=== PATIENT | male | born 1960 | race Caucasian/White ===

== ENCOUNTER → 2018-10-24 08:23 | Outpatient (CLI) | payer OTHER, SELFPAY ==
[2018-10-24 08:19] VITALS: BMI 43.0
--- NOTE | 2018-10-24 08:26 | RAD_ITS ---
STUDY: X-RAY - RIGHT KNEE REASON FOR EXAM: Pain, fall 4 months ago. TECHNIQUE: 4 view(s) of the knee. COMPARISON: None. FINDINGS: Normal visualized distal femur. Normal visualized proximal tibia and fibula. Normal proximal tibiofibular articulation. There is mild joint space narrowing of the medial femorotibial compartment. Normal lateral femorotibial compartment. Normal patellofemoral articulation. The soft tissue structures are unremarkable. RAD/Knee 4 or More Views IMPRESSION: Mild arthrosis of the medial femorotibial compartment. Electronically Signed: Emil Jenkins MD at 9:25 EDT Tel , Service support ,
== END ==
PROVIDERS: Family Provider Family Medicine; PCP Family Medicine; Referring Provider Orthopaedic Surgery; Visit Provider Orthopaedic Surgery
DX: S86.911A Strain of unspecified muscle(s) and tendon(s) at lower leg level, right leg, initial encounter (principal); X58.XXXA Exposure to other specified factors, initial encounter; Y93.9 Activity, unspecified; Y92.9 Unspecified place or not applicable; Y99.9 Unspecified external cause status
CPT/HCPCS: 73564

== ENCOUNTER → 2018-12-12 | Outpatient (CLI) | payer OTHER, SELFPAY ==
[2018-10-18 14:20] VITALS: BMI 43.0
[2018-11-06 15:57] VITALS: BMI 43.0
--- NOTE | 2018-12-12 07:12 | MRI_ITS ---
STUDY: MRI RIGHT KNEE REASON FOR EXAM: Male, 58 years old. Injury, medial knee pain TECHNIQUE: Standardized fat and water weighted pulse sequences were obtained in all 3 orthogonal planes. COMPARISON: None. FINDINGS: There is a radial tear of the medial meniscus posterior horn and approximately 4 mm extrusion. There is scattered, focal regions of greater than 50% thickness articular cartilage loss of the medial femorotibial compartment. Normal medial femoral condyle and tibial plateau. Normal medial collateral ligamentous complex (MCL). Normal distal semimembranosus, gracilis and semitendinosus tendons. Normal lateral meniscus. Normal hyaline cartilage of the lateral femorotibial compartment. Normal lateral femoral condyle and tibial plateau. Normal proximal tibiofibular articulation. Normal lateral collateral (fibular) ligament. Normal popliteus tendon. Normal biceps femoris tendon. Normal anterior cruciate ligament (ACL). Normal posterior cruciate ligament (PCL). Normal congruent patellofemoral articulation. There is signal heterogeneity within the articular cartilage of the patellofemoral compartment and focal full thickness articular cartilage loss of the patellofemoral compartment medial facet with mild underlying patellar marrow signal hyperintensity. Normal medial and lateral patellar retinaculum. Normal quadriceps tendon. Normal patellar tendon. Normal Hoffa's fat pad. There is no joint effusion. There is a small Rodriguez's cyst. There is moderate subcutaneous edema along the anterior knee soft tissues. The otherwise visualized osseous structures are unremarkable. MRI/Lower Ext Joint Only (Routine) IMPRESSION: Radial tear of the medial meniscus posterior horn with extrusion. 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 Small Rodriguez's cyst and mild subcutaneous edema along the anterior knee soft tissues. Electronically Signed: Rina Callahan, at 9:40 EDT Tel , Service support ,
== END | disposition home or self-care (01) ==
LOC: MRI 07:11
PROVIDERS: Referring Provider Orthopaedic Surgery; Visit Provider Orthopaedic Surgery
DX: S86.911A Strain of unspecified muscle(s) and tendon(s) at lower leg level, right leg, initial encounter (principal)
CPT/HCPCS: 73721

== ENCOUNTER 2018-12-13 07:00 | Outpatient (RCR) | payer OTHER, SELFPAY ==
[2018-11-06 15:57] VITALS: BMI 43.0
--- NOTE | 2018-11-08 13:53 | HP.PTEVAL ---
Patient's Visit Information KRANTHI SAMANO is a 58 year old M referred to Physical Therapy by Milad Wolff DO with a diagnosis of Strain of R knee. 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 One day he slipped on Jul 17, 2018 and hyperextended his knee. He was not worried about but it is not helping. Pt was trying to work through it and hoping it would heal and it isn't. He had some clifton therapy and the muscle released but still sore on the medial knee. He does a lot of walking and climning in and out of the truck and doing that 3-4 hours in he starts to hurt. Going up the stairs is not difficult until he stops, doing down hurts, standing still hurts. Walking is ok until he does it for awhile. His L hip is now starting to stiffen up on him. It feels that the psoas muscles are sore and it hurts when he stretches them and his G-max pain that shoots down his leg. His knee does not hurt when he is not on it. He has tried all kinds of biofreeze etc and it does not help. He has no N&T. It has not been keeping him up at night in the last couple of weeks. He has no locking or catching and it has popped a couple of times walking through his yard. He is now doing desk work for 4 weeks now and it seems to be a little better at night and now the hip is worse than the knee at night. He got a shot 2 days ago in the knee (cortizone shot) and he has been trying to baby it. wanted to do an MRI but has to do PT first. - Pain R knee pain Pain Intensity (Out of 10): 0 Pain Intensity Range: 6 - Objective Gait: Walks with decrease stance time on the R LE. R knee AROM: 110 knee flex, -6 knee ext. L knee AROM: 115 knee flex, -3 knee ext. R LE MMT: R hip flex 4/5, R hip abd 4/5, R knee ext 4/5 and R knee flex 4+/5. L LE MMT: L hip 4+/5, L hip abd 4+/5, L knee flex and ext 4+/5. Patellar DTR's: 0/3 B. Palpation: tender along the R medial joint line - Goals Goal 1:: I HEP Goal Time Frame: 4-6 Weeks Goal 2:: Increase R knee AROM to equal that of the L (-3 degrees to 115 degrees knee flex) Goal Time Frame: 4-6 Weeks Goal 3:: Walk with a normal gait pattern Goal Time Frame: 4-6 Weeks Goal 4:: Be able to complete a normal work day without pain Goal Time Frame: 4-6 Weeks - Rehabilitation Potential Rehabilitation Potential: Good - Anticipated Interventions Patient/Client Instruction: Educate patient on: Condition, Plan of Care For the Purpose of:: To decrease pain, To decrease swelling/inflammation, To increase ROM, To improve nutrient delivery to tissue, To improve muscle performance and motor function, To improve ability to perform ADL's, To increase tolerance to activity/condition/position, To improve performance and independence with ADL's, To improve gait and locomotor functions, To improve health of tissue, To decrease soft tissue restriction, To increase flexibility/ROM Therapeutic Exercise to Include: Strength training, Flexibilty training, Gait and locomotor training, Passive ROM, Active ROM For the Purpose of:: To decrease pain, To increase ROM, To improve muscle performance and motor function, To improve ability to perform ADL's, To improve gait and locomotor functions, To improve health of tissue, To increase flexibility/ROM Functional Training to Include: Gait training For the Purpose of:: To improve gait and locomotor functions IF ES: Yes Cryotherapy (ice pack, ice massage): Yes For the Purpose of:: To decrease pain, To decrease swelling/inflammation, To increase ROM, To improve nutrient delivery to tissue Thank you for the opportunity to evaluate your patient. For Medicare and Medicare HMO plans, please review the plan of care and approve it. It will need to be FAXED BACK to us at [phone] for Medicare purposes. For Medicare only, by signing this I certify the plan of care. Please let me know if there are questions or concerns regarding this plan of care. Physician Signature: Date:
--- NOTE | 2019-02-18 16:53 | HP.PTDCNRP_ITS ---
HP - Discharge Summary (1) - Patient Information KRANTHI SAMANO was seen in my office for initial evaluation on 11/08/18. The following Plan of Care was established for this patient: Initial Frequency: 2x /Week Initial Duration: 6 Weeks - Anticipated Interventions Patient/Client Instruction: Educate patient on: Condition, Plan of Care For the Purpose of:: To decrease pain, To decrease swelling/inflammation, To i ncrease ROM, To improve nutrient delivery to tissue, To improve muscle performance and motor function, To improve ability to perform ADL's, To increase tolerance to activity/condition/position, To improve performance and independence with ADL's, To improve gait and locomotor functions, To improve health of tissue, To decrease soft tissue restriction, To increase flexibility/ROM Therapeutic Exercise to Include: Strength training, Flexibilty training, Gait and locomotor training, Passive ROM, Active ROM For the Purpose of:: To decrease pain, To increase ROM, To improve muscle performance and motor function, To improve ability to perform ADL's, To improve gait and locomotor functions, To improve health of tissue, To increase flexibility/ROM Functional Training to Include: Gait training For the Purpose of:: To improve gait and locomotor functions IF ES: Yes Cryotherapy (ice pack, ice massage): Yes For the Purpose of:: To decrease pain, To decrease swelling/inflammation, To increase ROM, To improve nutrient delivery to tissue This patient was last seen in our office 12/13/18. Pertinent comments regarding their Physical therapy will appear below: SAMANTHA PT... surgery At this point I will be discontinuing this patient from physical therapy. I would be happy to see this patient again in the future if found appropriate by the physician. Thank you! Mandi Mahoney, MPT
== END 2018-12-13 19:00 | disposition home or self-care (01) ==
LOC: PT 07:00
PROVIDERS: Family Provider Family Medicine; PCP Family Medicine; Referring Provider Orthopaedic Surgery; Visit Provider Orthopaedic Surgery
DX: S83.91XD Sprain of unspecified site of right knee, subsequent encounter (principal)
CPT/HCPCS: 97110; 97161

== ENCOUNTER 2018-12-31 08:22 | Day surgery (SDC) | payer OTHER, SELFPAY ==
[2018-11-06 15:57] VITALS: BMI 43.0
[2018-12-31 08:42] VITALS: BP 125/86; PULSE 63; RESP 16; TEMP 36.9; O2SAT 95; BMI 41.5
--- NOTE | 2018-12-31 10:17 | PCM.HP.BLA ---
History and Physical Date of Admission: 12/31/18 Intake Intake Visit Reasons: RIGHT KNEE Allergies No Known Allergies Allergy (Unverified 10/18/18 14:19) PFSH Medical History Fatigue (Acute) Knee pain (Acute) Shoulder pain (Acute) Chronic neck and back pain (Chronic) Family History Other CVA (cerebral vascular accident) Social History Smoking Status: Never smoker alcohol intake: current HPI RIGHT KNEE: Details: Parts of this documentation were recorded by a scribe, this documentation accurately reflects the service provided and the decisions made by me, Milad Wolff, 12/04/18 0809. KRANTHI SAMANO is a 58 year old M here today for F/U after right knee injection given on 11/06/18. States the injection was effective for 2 weeks. Patient has been completing PT and states this has been effective for helping with his knee and has been effective for his hips. MRI was denies in October d/t no injection or PT was completed prior. Patient has been on light duty and patient states he has been doing well with this work. Patient has also invested in a balance ball to preform step ups. Patient does states he feels like something is pulling in the medial side of his knee. This was not present prior to his reported work injury and has continued to give him discomfort despite our treatment thus far ROS Const Reports system reviewed and no additional complaints, except as docu Eyes Reports system reviewed and no additional complaints, except as docu ENT Reports system reviewed and no additional complaints, except as docu Card Reports system reviewed and no additional complaints, except as docu Resp Reports system reviewed and no additional complaints, except as docu GI Reports system reviewed and no additional complaints, except as docu Reports system reviewed and no additional complaints, except as docu Musc Reports system reviewed and no additional complaints, except as docu, Reports as per HPI Skin/Breast Reports system reviewed and no additional complaints, except as docu Neuro Yes system reviewed and no additional complaints, except as docu Psych Reports system reviewed and no additional complaints, except as docu Endo Reports system reviewed and no additional complaints, except as docu Nelson/Lymph Reports system reviewed and no additional complaints, except as docu Aller/Immun Reports system reviewed and no additional complaints, except as docu Ortho Exam Right Knee Skin/Wound: No erythema, No ecchymosis, No swelling Examination: Yes Med jt line tenderness, No Lat jt line tenderness, Yes Ac's Test (click with medial) KNEE: Right Knee Skin/Wound: No erythema, No ecchymosis 1+: Effusion Knee ROM: Yes ROM-Extension -20 to 0, No ROM-Flexion 0-140 (110) Examination: Yes Med jt line tenderness, No Lat jt line tenderness, Yes Ac's Test (med pain no click), No Acevedo's, No TTP Pes Anserine Stability: NML: Anterior Drawer, NML: Valgus 0, NML: Valgus 30, NML: Varus 30 Patella Grind: No Assessment & Plan Problems 1. Strain of right knee, initial encounter S86.101Z Plan Since patient has not had success with the steroid injection of the knee and formal PT with HEP we will try for another MRI to see if this will be approved because he is continuing to have medial sided mechanical symptoms. Will also request additional code request for mechanical pain of right knee. Clinical exam is showing some signs of a meniscus tear. Follow up after MRI is approved and obtained or sooner if pain, swelling, numbness or associated symptoms, or concerns develop. All questions answered. Patient in agreement of plan. Coding Level of Care Code Off vis,est,level 3 Diagnoses Strain of right knee, initial encounter S86.778U ??Encounter type: initial encounter 12/04/18 1606 <Electronically signed by Milad Wolff DO> Date Milad Wolff DO I have re-examined the patient. There are no clinical changes since date of exam
[2018-12-31] MEDS: Cefazolin 2 GM in 0.9% Normal Saline 100 ML IV (10:28)
[2018-12-31] MEDS: Epinephrine (1 mg/ml) 1 MG/ML VIAL (10:49)
[2018-12-31] MEDS: Bupiv/Epi 0.5% Mpf 30 ML Vial (11:00)
[2018-12-31] MEDS: MethylPREDNISolone Acetate 80 MG/ML Vial (11:08)
[2018-12-31] MEDS: Morphine 4 MG/ML Syringe (11:08)
[2018-12-31] MEDS: Bupivacaine 0.5% PF 10 ML VIAL (11:08)
[2018-12-31 11:20] VITALS: BP 125/86; BP 127/82; PULSE 70; RESP 16; TEMP 36.2; O2SAT 92
--- NOTE | 2018-12-31 11:28 | DCINST_ITS ---
Call your doctor if you observe: Fever of 101 or Higher, Shortness of breath, Chest pain Additional Instructions: Ice and elevate next 72 hours .keep dressing on clean and dry for 48 hours then may remove begin showering daily but do not submerge in tub or pool. After shower may apply Band-Aids . Encourage knee range of motion weightbearing as tolerated, use crutches until confident in knee then may discontinue. No strenuous activity. When not ambulating keep iced and elevated next 72 hours. Allergies/Adverse Reactions: Allergies No Known Allergies Allergy (Unverified 12/31/18 08:42) Medications to take at Discharge Naproxen Sodium [Aleve] 220 mg PO BID 12/27/18 Hydrocodone Bitart/Apap 5-325 [[place] 5MG-325MG] 1 - 2 tablet PO Q4H PRN PRN 5 Days #30 tablet 12/31/18 The following prescriptions were given: Hydrocodone Bitart/Apap 5-325 [[place] 5MG-325MG] 1 - 2 tablet PO Q4H PRN PRN 5 Days #30 tablet PRN Reason: Pain Primary Care Physician: Care Physician,No Primary [Primary Care Provider] - Test Results: Test results from this visit will be discussed in further detail at your follow- up appointment, if applicable. Please Follow Up With: Milad Wolff DO - 2 weeks
--- NOTE | 2018-12-31 11:28 | PCM.OPRPT ---
Report of Operation Date of Procedure: 12/31/18 Description of Surgical Findings:: Preop diagnosis: Right knee DJD medial meniscus tear Postoperative diagnosis: Grade 4 cartilage wear medial femoral condyle and trochlea grade 3 patella grade 2-3 lateral compartment small radial tearing body lateral meniscus, loose body Procedure: Right knee arthroscopic partial medial and lateral meniscectomy chondroplasty medial and patellofemoral compartment, removal of loose body Anesthesia: General Estimated blood loss: [5] mL Tourniquet time: 24 minutes minutes 300 mmHg Complications: none Indication for procedure: This is a 58-year-old male patient who had injured his knee at work. Who had failed conservative treatment then went underwent an MRI which showed medial meniscus tear and cartilage wear. The patient did wish to proceed with an elective arthroscopic surgery to attempt to alleviate the symptoms. Risk benefits and alternatives of the procedure were reviewed including risk of bleeding infection nerve artery tissue damage need for further surgery continued pain and expected postoperative course. Procedure: The patient was met in the preoperative holding area. The operative extremity was identified by both patient and physician and family and marked. Patient was brought back to the operating room on a wheeled cart and transferred to the operating table in the supine position. Anesthesia was started. A well-padded tourniquet was placed on the operative extremity. A lower extremity leg ledbetter was secured to the operative extremity. The contralateral extremity was well-padded and the end of the bed was flexed to 90 degrees. The patient was prepped and draped in the usual sterile fashion. A timeout was called to ensure the proper patient, procedure, and extremity were being contemplated. 0.5% Marcaine with epinephrine was injected into the planned incisional areas under the skin only. An Esmarch was used to exsanguinate the extremity and the tourniquet was inflated. An 11 blade scalpel was used to make a stab incision in the anterior lateral portal. The arthroscope was inserted into the intercondylar notch and inflow and outflow tubes were attached. Arthroscopic visualization began. The medial compartment was entered. An 18-gauge spinal needle was used to establish the placement for anterior medial portal. An 11 blade scalpel was used to make a stab incision. Blunt probe was inserted followed by a meniscal probe. Complex tearing posterior horn and body medial meniscus with use of arthroscopic biting instruments shaver and ArthroCare partial medial meniscectomy was performed was also noted to be near grade 4 cartilage wear extensively along the medial femoral condyle and patellofemoral joint there was a loose cartilage in the peripheries and a chondroplasty was performed on the peripheral edge or new no loose bodies there was a loose body found in the gutter which was removed the ACL was [found to be intact]. The lateral compartment was entered small radial tear body lateral meniscus which was debrided with a shaver [With the use of arthroscopic biting instruments and yair and ArthroCare wand a partial lateral meniscectomy was performed.] The arthroscope was switched to the medial portal to complete the procedure. The medial and lateral gutters were inspected and one small loose body which was removed. The patellofemoral joint was inspected high-grade cartilage wear. [There was good patellar tracking.] The knee was thoroughly irrigated and drained. An intra-articular injection with 5 cc 0.5% Marcaine plain 4 mg of morphine [and 40 mg of Depo-Medrol] was injected intra-articularly. The arthroscope was removed the portals were closed with 3-0 nylon arthroscopic stitches. Followed by Xeroform 4 x 4's ABDs web roll and an Juma wrap. The tourniquet was let down and the drapes were removed. All counts were correct. The patient was brought back to the PACU in stable condition.
[2018-12-31 11:30] VITALS: BP 125/86; BP 127/91; PULSE 65; RESP 16; O2SAT 92
[2018-12-31 11:40] VITALS: BP 125/86; BP 129/81; PULSE 64; RESP 16; TEMP 36.2; O2SAT 94
[2018-12-31] MEDS: HYDROcodone Bitartrate/Apap 5/325 Tablet PO (12:10)
[2018-12-31 12:45] VITALS: BP 125/86; BP 136/82; PULSE 55; RESP 16; TEMP 36.3; O2SAT 93
== END 2018-12-31 12:54 | disposition home or self-care (01) ==
LOC: SDC 08:22 → AC 08:23
PROVIDERS: Referring Provider Orthopaedic Surgery; Visit Provider Orthopaedic Surgery
PROC: (CPT 29870; principal; 2018-12-31 09:50)
DX: S83.241A Other tear of medial meniscus, current injury, right knee, initial encounter (principal); M17.11 Unilateral primary osteoarthritis, right knee; X58.XXXA Exposure to other specified factors, initial encounter; Y93.89 Activity, other specified; Y92.89 Other specified places as the place of occurrence of the external cause; Y99.0 Civilian activity done for income or pay
CPT/HCPCS: 01400; 29880; J7120; J2405

== ENCOUNTER → 2019-01-03 | Outpatient (CLI) | payer OTHER, SELFPAY ==
[2018-12-31 08:42] VITALS: BMI 41.5
--- NOTE | 2019-01-03 11:30 | VDLE_ITS ---
Reason For Study: Pain RIGHT GSV is normal. CFV is compressible, spontaneous, phasic, competent and demonstrates normal augmentation. FV is compressible, spontaneous, phasic, competent and demonstrates normal augmentation. POP V is compressible, spontaneous, phasic, competent and demonstrates normal augmentation. T/P Trunk is compressible. PTV is compressible. RT PerV is compressible. Procedure Exam performed in department. A preliminary report was called and/or faxed to [facility]. Interpretation Summary There is no evidence of right lower extremity deep vein thrombosis. Right greater saphenous vein appears patent and compressible segmentally. Ordering Physician: Milad Wolff Performed By: Jazlyn Dyson RVT
== END | disposition home or self-care (01) ==
LOC: CVS 11:28
PROVIDERS: Referring Provider Orthopaedic Surgery; Visit Provider Orthopaedic Surgery
DX: M79.661 Pain in right lower leg (principal)
CPT/HCPCS: 93971

== ENCOUNTER 2019-04-02 09:00 | Outpatient (RCR) | payer OTHER, SELFPAY ==
[2019-02-17 09:51] VITALS: BMI 41.5
--- NOTE | 2019-03-03 10:26 | HP.PTEVAL_ITS ---
Patient's Visit Information KRANTHI SAMANO is a 58 year old M referred to Physical Therapy by Milad Wolff DO with a diagnosis of Right Knee Strain. Date of Evaluation: 03/03/19 Physical Therapist: Radha Rosario DPT - Visit Plan Frequency: 3x /Week Duration: 4 Weeks Plan: Focus on LE and core strength/stabilization. HEP given: SLS with focus on level pelvis to avoid hip drop, SLR with isometric abdominals, Clams - Subjective Findings: Hurt Right knee back in July 17- slipped when getting out of the truck at work. Early October boss saw him limping- [facility] took over- 5 weeks then was given and injection and scheduled PT. Did PT for 6 weeks- had an MRI by Dr. Woodward saw a meniscal tear and OA. Had daisy December 31- was doing great for a week- no pain- got out of a vehicle twisted and it hurt really bad and has not been right since. Was working from home and light duty- had a cortisone injection and brace and went back to work 02/24/19. Was fired 2 days after he was back from [place]. The pain is along the medial side of the knee. 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 Knows the knee is not right. Worst: 6/10 Best: 0/10 Eases: stop whatever he is doing, bending and work it through, get off it. No radiating pain- describes the pain as sharp/shooting. No N/T in the LE- but does have some in the toes which is new since surgery. 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 No x-rays or MRI since surgery. Does not have an apt to go back and see Dr. Woodward. Sleep: not disturbed. Wears the knee brace for extensive walking or activity. But does not wear in the evenings and when he is sleeping. PMHx/Med: no changes since surgery. - Objective Posture: FH, RS- can correct but does not maintain. Gait: antalgic- decreased stance time on the right LE with poor heel/toe pattern. SLS: 10 sec but does have hip drop immediatly. HR/TR: able no deviation noted. Stairs:asc/desc 8' recip with 2 HR- uses UE A for propulsion upstairs- desc is uncontrolled. Palpation: tender along medial joint line. ROM: 0-120 degrees. Strength: ankle: 5/5 Knee: 4+/5 flexion 5/5 extension, Hip: 4/5, Core: fair minus. Flex: HS: moderate, Gastroc: moderate - Goals Goal 1:: Patient will be I with HEP and progression Goal Time Frame: 4-6 Weeks Goal 2:: Patient will ambulate >300 feet with a normalized gait pattern Goal Time Frame: 4-6 Weeks Goal 3:: Patient will maintain proper posture t/o tx session to demo increased core s/s Goal Time Frame: 4-6 Weeks Goal 4:: Patient will report 0/10 pain with all ADL's. Goal Time Frame: 4-6 Weeks - Rehabilitation Potential Physical Therapy Diagnosis: Patient presents with hypomobility- he has decreased strength, flex and musculare endurance leading to abnormal gait and increased pain with ADL's Rehabilitation Potential: Fair - Anticipated Interventions Patient/Client Instruction: Educate patient on: Benefits of Fitness Program Therapeutic Exercise to Include: Strength training, Endurance training, Balance training, Coordination, Agility training, Body mechanics, Postural training, Flexibilty training, Gait and locomotor training, Dynamic Lumbar Stabilization For the Purpose of:: To improve muscle performance and motor function TENS: Yes Cryotherapy (ice pack, ice massage): Yes Thermo therapy (hot pack): Yes Ultrasound (thermal/non thermal): Yes For the Purpose of:: To decrease pain Thank you for the opportunity to evaluate your patient. For Medicare and Medicare HMO plans, please review the plan of care and approve it. It will need to be FAXED BACK to us at [phone] for Medicare purposes. For Medicare only, by signing this I certify the plan of care. Please let me know if there are questions or concerns regarding this plan of care. Physician Signature: __Date:
--- NOTE | 2019-04-02 09:36 | HP.PTDCSUM_ITS ---
HP - PT D/C Summary It has been my pleasure to treat KRANTHI SAMANO under orders from Milad Wolff DO, for the diagnosis of Right Knee Strain for a total of 11 visit(s). Discharge Date: Please see the following information for a summary of their discharge status. - Subjective Subjective: The knee is okay- feels like its getting stronger but is still having the 2-3 level pain- when he is on the knee. Agg: deeper squatting, stairs (more down than up), twisting, reaching down Worst: 4/10 Best: 0/10 Eases: rest, getting off of it. Once he sits down the pain goes away within a minute. Pain is located along the medial distal patella. He can't get on his knees. No raidiating pain. Does have superficial N/T but none in the toes. Describes the pain in the knee as sharp/shooting. Does not have an apt to go back and see [place]- has not been in contact with workers comp. Is planning on going back to work but is not currently employeed. Feels that he is 30%- pain level- limits functional mobility. Stiffness in the joint louise mornings. Sleep: not disturbed. - Pain R knee Pain Intensity (Out of 10): 3 - Overall Improvement % Improvement: 30 - Objective Objective/Function: Posture: FH, RS- can correct but does not maintain. Gait: slightly antalgic- decreased stance time on the right LE. SLS: 30 sec n LOB - mild increasde of muscle activation. HR/TR: able no deviation noted. Stairs: asc/desc 8' recip with no HR- ASC- pushed off & vaulted to avoid increase stance time on R LE, desc is uncontrolled. Palpation: tender distal medial patella te ndon. ROM: 0-120 degrees. Strength: ankle: 5/5 Knee: 5/5 flexion 5/5 extension, Hip: 5/5, Core: fair minus. Flex: HS: moderate, Gastroc: moderate - Goals Goal 1:: Patient will be I with HEP and progression Goal Progress: Goal Met Goal 2:: Patient will ambulate >300 feet with a normalized gait pattern Goal Progress: Progressing Goal 3:: Patient will maintain proper posture t/o tx session to demo increased core s/s Goal Progress: Progressing Goal 4:: Patient will report 0/10 pain with all ADL's. Goal Progress: Progressing - Plan Plan: D/C - encouraged to continue movement & exercise program. ROM, strength are both WFL, pain is limiting factor for functional mobility. - D/C Information If there are questions or concerns regarding this patient's physical therapy, please feel free to call me at [phone]. Thank you for the referral of this patient. Sincerely, KRISTINA MurciaT
== END 2019-04-02 19:00 | disposition home or self-care (01) ==
LOC: PT 09:00
PROVIDERS: Referring Provider Orthopaedic Surgery; Visit Provider Orthopaedic Surgery
DX: S86.911D Strain of unspecified muscle(s) and tendon(s) at lower leg level, right leg, subsequent encounter (principal)
CPT/HCPCS: 97110; 97161; 97164

== ENCOUNTER 2019-05-25 15:28 | Emergency (ER) | payer OTHER, MEDICAID, SELFPAY ==
[2019-04-28 08:31] VITALS: BMI 41.5
[2019-05-25 15:30] VITALS: BP 163/100; PULSE 66; RESP 18; TEMP 36.5; O2SAT 96; BMI 43.9
--- NOTE | 2019-05-25 17:22 | RAD_ITS ---
STUDY: X-RAY CHEST REASON FOR EXAM: Male, 59 years old. Lower extremity swelling TECHNIQUE: Two view of the chest were performed COMPARISON: None. FINDINGS: Lungs are clear. There is no pneumothorax, pulmonary edema, pleural effusions or cardiomegaly. Osseous structures are intact. There is no gas under the diaphragms. [ ] RAD/Chest PA and Lateral IMPRESSION: 1. No acute cardiorespiratory disease. [ ] Electronically Signed: Azael Luis, at 18:32 EDT Tel , Service support ,
--- NOTE | 2019-05-25 17:22 | EKG12_ITS ---
Test Reason : LEG SWELLING Blood Pressure : / mmHG Vent. Rate : 057 BPM Atrial Rate : 057 BPM P-R Int : 166 ms QRS Dur : 114 ms QT Int : 436 ms P-R-T Axes : 015 005 038 degrees QTc Int : 424 ms Sinus bradycardia with Premature atrial complexes Otherwise normal ECG Confirmed by CHRISTIANNE DESHPANDE, JORDAN ([id number]), avid editor ANDRES OCHOA ([id number]) on 05/30/2019 10:23:29 AM Referred By: LANCE/TIBURCIO Confirmed By:JORDAN FAUST MD
[2019-05-25 17:41] LABS: Absolute Lymphocyte Count 2.79 X10^3/uL (0.83-4.51); Absolute Neutrophil Count 4.6 X10^3/uL (2.0-7.7); Basophil# 0.06 X10^3/uL; Basophil% 0.7 % (0-1); Eosinophil# 0.21 X10^3/uL; Eosinophils% 2.5 % (0-5); Hematocrit 44.7 % (40-54); Hemoglobin 14.7 g/dL (13.0-16.5); Lymphocyte # 2.79 X10^3/ul (4.0); Mean Corp Hgb Conc 32.9 g/dL (32-36); Mean Corpuscular Hgb 32.2 pg (27.0-32.0); Mean Platelet Vol. 10.2 fl (6.2-12.0); Monocyte% 8.3 % (0-10); NRBC Flagged by Analyzer 0 % (0-5); Neutrophil # 4.64 X10^3/uL (2.7-7.7); Neutrophil % 54.8 % (47-70); Platelet Count 191 K/mm3 (150-450); RBC Distribution Width CV 13.2 % (11.6-14.6); RBC Distribution Width SD 47.6 fl (35.1-43.9); Red Blood Count 4.56 M/mm3 (4.6-6.2); White Blood Count 8.5 K/mm3 (4.4-11.0)
[2019-05-25 18:04] LABS: AST(SGOT) 40 U/L (15-37); Alanine Aminotransfer ALT/SGPT 73 U/L (16-61); Albumin, Serum 3.6 g/dL (3.2-5.0); Alkaline Phosphatase 77 U/L (45-117); Anion Gap 7 (5-15); BUN 15 mg/dL (7-18); BUN/Creat Ratio 15.8 RATIO (10-20); Calcium,Total 8.9 mg/dL (8.5-10.1); Chloride 106 mmol/L (98-107); Creatinine, Serum 0.95 mg/dL (0.70-1.30); EST Glomerular Filtration Rate 86 mL/min (>60); Est Glom Filt Rate - Afr Amer 104 mL/min (>60); Estimated Creatinine Clearance 88.07 ml/min; Globulin 3.6 g/dL (2.2-4.2); Glucose 87 mg/dL (74-106); Potassium 4.3 mmol/L (3.5-5.1); Protein, Total 7.2 g/dL (6.4-8.2); Sodium Level 140 mmol/L (136-145)
[2019-05-25 18:14] LABS: D-Dimer Quantitative (DVT/PE) 0.65 FEU/ug/m (0.27-0.49)
[2019-05-25 18:24] LABS: BNP,B-Type NATRIURETIC PEPTIDE 28.4 pg/mL (0-100)
--- NOTE | 2019-05-25 19:19 | ED.DCSUM_ITS ---
- ER Visit Summary Date of Service: 05/25/19 Chief Complaint: Bilateral leg swelling History of Present Illness: The patient is a [address] Steven Mcpherson. He reports that he has had swelling of both legs for the past 4 to 5 weeks. States that the swelling to his right leg is gotten much worse over the past few days. He denies any recent trauma. No fall, MVA, or change in activity. However, he reports that he has pain in his right knee that is been present since having his surgery on his meniscus in December of this year. States is a sharp pain with twisting and aching pain otherwise. Zeta 10 at worst and 2 out of 10 currently. He denies any numbness or weakness. Patient reports he had a cough productive of light sputum at night for the past 5 weeks. No blood in his sputum. He denies any fever, chills, chest pain, shortness of breath, or other complaints. Physical Examination: Vitals: Stable. Afebrile. General: Well-nourished and well-developed. Head: Normocephalic atraumatic. Neck: Supple, no lymphadenopathy. No JVD. Nontender. Cardiovascular: Regular rate and rhythm. No murmurs. Respiratory: No respiratory distress. Clear to auscultation bilaterally. Abdominal: Soft, nontender, nondistended, normal bowel sounds. No guarding, rebound, or peritoneal signs. Back: Nontender. Extremities: 2+ pitting edema of his right leg. 1+ pitting edema of his left leg. To the anterior distal right leg there is mild erythema and warmth. He has 2+ dorsalis pedis pulses bilaterally. Skin: Normal color, no rash. Neurologic: Alert and oriented ?3. Cranial nerves II through XII are intact. Normal strength and sensation. Psych: Normal affect. Test Results: EKG is sinus bradycardia at 57 with no acute changes. Troponin is negative. BNP is 28.4. D-dimer 0.65. LFTs marked for an ALT of 73 and AST 40. Chem-7 is normal. CBC is normal. Chest x-ray shows no acute disease. Emergency Department Course and Treatment: I had a prolonged discussion the patient and his about possibilities. He is written for a Doppler ultrasound to be obtained tomorrow as they are not here today. He was given a dose of Xarelto and Keflex p.o. Treatment Plan: Patient will be returned to the emerge department if his Doppler does show a DVT. Otherwise he is instructed to take Keflex and Lasix 20 mg p.o. daily and follow-up with Dr. Steven Mcpherson in 3 to 5 days. Return to the e mergency department for any worsening symptoms. Disposition: To home in improved and stable condition. Impression: 1. Bilateral lower extremity edema. 2. Cellulitis right leg. This note was generated with [employer] dictation software. It may contain incorrect words, spelling, and punctuation that were not noted in review of the chart prior to signing ED Disposition - Plan for ED Patient: Disposition: Home or Assisted Living Instructions: ED Peripheral Edema, Bilateral Prescriptions: Cephalexin [Keflex] 500 mg PO Q6 #28 cap Prescription Printed Furosemide [Lasix] 20 mg PO DAILY #7 tab Prescription Printed Referrals: Steven Mcpherson III, MD [STAFF PHYSICIAN] - 3-5 Days
[2019-05-25 19:31] VITALS: BP 178/100; PULSE 61; RESP 20; O2SAT 95
[2019-05-25] MEDS: Rivaroxaban 20 MG Tablet PO (19:32)
[2019-05-25] MEDS: Cephalexin 250 MG Capsule 500 MG PO (19:34)
== END 2019-05-25 19:37 | disposition home or self-care (01) ==
LOC: ED 17:31
PROVIDERS: Emergency Provider Emergency Medicine
DX: R60.0 Localized edema (principal); L03.115 Cellulitis of right lower limb; R05 Cough; M19.90 Unspecified osteoarthritis, unspecified site
CPT/HCPCS: 71046; 80053; 83880; 84484; 85025; 85379; 93005; 99285; A4216

== ENCOUNTER → 2019-05-26 10:28 | Outpatient (CLI) | payer MEDICAID, SELFPAY ==
[2019-05-25 15:30] VITALS: BMI 43.9
--- NOTE | 2019-05-26 10:36 | VDLE_ITS ---
Reason For Study: Swelling RIGHT GSV is normal. CFV is compressible, spontaneous, phasic, competent and demonstrates normal augmentation. FV is compressible, spontaneous, phasic, competent and demonstrates normal augmentation. POP V is compressible, spontaneous, phasic, competent and demonstrates normal augmentation. T/P Trunk is compressible. PTV is compressible. RT PerV is compressible. Nonvascularized structure noted in the popliteal fossa measuring approximently 1.34 x 1.83 x 3.94 cm. Procedure Exam performed in department. A preliminary report was called and/or faxed to No PCP report to ED. Interpretation Summary Deep veins of the right lower extremity are patent and compressible segmentally. There is no evidence of right lower extremity deep vein thrombosis. Valvular competence appears intact within the proximal deep venous system on the right . The right great saphenous vein appears patent and compressible segmentally. A non-vascular, largely hypoechoic structure is noted in the right popliteal space, measuring 1.34 cm x 1.83 cm x 3.94 cm. This probably represents a popliteal cyst. Clinical correlation is advised. Ordering Physician: Toney Collins Performed By: Jazlyn Dyson RVT
== END ==
PROVIDERS: Referring Provider Emergency Medicine; Visit Provider Emergency Medicine
DX: M79.89 Other specified soft tissue disorders (principal)
CPT/HCPCS: 93971